=== PATIENT | male | born 1950 | race Caucasian/White ===

== ENCOUNTER → 2016-10-17 | Day surgery (SDC) | payer BC, MEDICARE ==
[~2016-10-17] VITALS: Ht 182.9 cm; Wt 90.7 kg
[~2016-10-17] MED LIST: ACCUPRIL40 MG PO; ASPIRIN EC81 MG PO; CLEOCIN HCL300 MG PO; LEVAQUIN 750 M750 MG PO; NEURONTIN300 MG PO; PERCOCET 5-3251 EACH PO; THERA-VITE W/ B1 TAB PO; TYLENOL WITH C1 EACH PO
--- NOTE | ~2016-10-17 | OR ---
PATIENT'S NAME: SANTI POTTER [facility] AGE: 66 Y [address] ROOM: [place] [address] LOCATION: [facility] [place] ADMIT DATE: 10/17/2016 OR/Procedure Report DISCHARGE DATE: FAMILY PHYSICIAN: Sasha Mcmullen APRN ATTENDING PHYSICIAN: Thony Puckett SURGEON: Thony Puckett DO HEAD WAITER: Staff. DATE OF PROCEDURE: 10/17/2016 PREOPERATIVE DIAGNOSIS: Necrotic left small fingertip. POSTOPERATIVE DIAGNOSIS: Necrotic left small fingertip. PROCEDURE: Left small finger amputation through the distal interphalangeal joint. ANESTHESIA: IV regional with sedation. ESTIMATED BLOOD LOSS: Less than 10 mL. TOURNIQUET TIME: Less than 1 hour at 250 mmHg. COMPLICATION: None. DISPOSITION: Stable to recovery room. JUSTIFICATION FOR PROCEDURE: Santi Potter is a 66-year-old male with a history of a crush injury to the tip of his left small finger. 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 He was counseled as to treatment options, risks versus benefits, and necessary afterward care. He gave informed consent to proceed with an amputation to the small finger and any indicated procedures. He was offered limb salvage attempts with skin grafting to the injured digit tip, but he declined this indicating he wanted to quick his route to recovery and minimal other wounds to try to heal. PROCEDURE IN DETAIL: The patient was properly identified, both verbally and by name tag. He was taken to the operating suite and placed on operating table in the supine position. The anesthesiologist administered an IV regional anesthetic on the left upper extremity and IV sedation. Once adequate anesthesia was obtained, left upper extremity was prepped and draped in usual sterile fashion. The extremity was exsanguinated with an Esmarch bandage and tourniquet inflated to level of the arm to 250 mmHg. A #15 blade knife was used to make a fishmouth incision centered around the PATIENT'S NAME: SANTI POTTER [facility] AGE: 66 Y [address] ROOM: [place] [address] LOCATION: [facility] [place] ADMIT DATE: 10/17/2016 OR/Procedure Report DISCHARGE DATE: FAMILY PHYSICIAN: Sasha Mcmullen APRN ATTENDING PHYSICIAN: Thony Puckett distal interphalangeal joint. Care was taken to preserve as much viable soft tissues as possible while resecting the entire distal phalanx bone and necrotic soft tissues near the tip and the nail bed. Full thickness dissection was carried out sharply. The digit was disarticulated through the distal interphalangeal joint. The necrotic finger tip tissues were sent to pathology for identification. The remaining soft tissues were inspected. The dorsal and volar neurovascular bundles were identified and neurectomies were performed trimming the nerve tissue back well proximal to the level of the amputation to avoid painful neuroma formation at the tip. The wound was copiously irrigated with saline. There was no necrotic tissue present. There was no evidence of infection or purulence noted. The cartilage was removed with a rongeur off of the head of the middle phalanx and the soft tissues were then contoured to create a cosmetically acceptable flap closure. The wound was copiously irrigated once again. The soft tissue sleeve was then closed with 5-0 nylon suture in interrupted mattress stitch fashion. A sterile bulky bundle dressing was applied. The tourniquet was let down prior to skin closure to ensure good hemostasis and to ensure good viability at the incision site. After the wound was closed and incision margins were visualized and there was no blanching of the skin to suggest undue pressure from the repair. There is good capillary refill to the tip. A sterile bulky bundle dressing was applied. The patient was aroused from IV sedation and taken to the recovery room in good condition. Immediate postoperative examination in the recovery room showed good capillary refill distally in the visible digits. The operative digit bandages showed no bleed through. Light touch sensation, motor function distally were equivocal due to persistence of the neurologic blockade. THONY PUCKETT DO NTM/modl /[id number] d: 10/19/16 0026 t: 10/24/16 2203, OPERATIVE SUMMARY
== END | disposition disaster alternative care site (69) ==
LOC: GPOC 10-16 13:00 → GSDC 09:03
PROC: 0X6W0Z3 Detachment at Left Little Finger, Low, Open Approach (ICD-10-PCS; principal; 2016-10-17)
DX: M87.245 Osteonecrosis due to previous trauma, left finger(s) (principal); F17.210 Nicotine dependence, cigarettes, uncomplicated; M19.90 Unspecified osteoarthritis, unspecified site; I10 Essential (primary) hypertension; I25.10 Atherosclerotic heart disease of native coronary artery without angina pectoris; Z85.51 Personal history of malignant neoplasm of bladder; Z90.49 Acquired absence of other specified parts of digestive tract; Z88.0 Allergy status to penicillin; Z79.899 Other long term (current) drug therapy; Z79.82 Long term (current) use of aspirin
CPT/HCPCS: J2001; J7120

== ENCOUNTER → 2017-01-04 | Day surgery (SDC) | payer BC, MEDICARE ==
[~2017-01-04] VITALS: Ht 182.9 cm; Wt 85.2 kg
--- NOTE | ~2017-01-04 | OR ---
PATIENT'S NAME: SANTI KNIGHT [facility] AGE: 66 Y [address] ROOM: [place] [address] LOCATION: [facility] [place] ADMIT DATE: 01/04/2017 OR/Procedure Report DISCHARGE DATE: FAMILY PHYSICIAN: Sasha Mcmullen APRN ATTENDING PHYSICIAN: Kina Blackburn SURGEON: Kina Blackburn MD CHAIR PAD MAKER: DATE OF PROCEDURE: 01/04/2017 PREOPERATIVE DIAGNOSIS: Transitional cell carcinoma of the bladder. POSTOPERATIVE DIAGNOSIS: Transitional cell carcinoma of the bladder. PROCEDURE PERFORMED: TURBT. ANESTHESIA: General. COMPLICATIONS: None. INDICATION FOR PROCEDURE: The patient is a 66-year-old male who was noted to have small superficial-appearing tumors lateral to the right ureteral orifice. These were noted on followup cystoscopy. The patient is status post TURBT in June of this year. DETAILS OF PROCEDURE: After informed consent obtained, the patient was taken to the operating room. A general anesthetic was applied and he was placed in the dorsal lithotomy position. The groin area was prepped and draped in normal sterile fashion. Cystoscope was introduced into the urethra and bladder without difficulty. Two primary lesions again were noted lateral to the ureteral orifice. Smaller satellite lesions were noted on the patient's left anterior wall. Next, biopsy forceps were introduced and the 2 lesions on the patient's right side were removed with cold cup biopsies. Following that, the resectoscope sheath was introduced followed by the resectoscope. The biopsy sites were then fulgurated for hemostasis. The lesions on the patient's left anterior wall were then resected and fulgurated. The specimens were sent to Pathology for analysis. The bladder was empty and the procedure terminated. The patient tolerated the procedure well and transferred to recovery room in good condition. MD YANET PARRA/farshadl PATIENT'S NAME: SANTI KNIGHT [facility] AGE: 66 Y [address] ROOM: [place] [address] LOCATION: [facility] [place] ADMIT DATE: 01/04/2017 OR/Procedure Report DISCHARGE DATE: FAMILY PHYSICIAN: Sasha Mcmullen APRN ATTENDING PHYSICIAN: Kina Blackburn /[id number] CC: Sasha Mcmullen APRN d: 01/05/17 2345 t: 01/15/17 1646, OPERATIVE SUMMARY
[2017-01-04 11:01] LABS: BASOPHIL # 0.1 K/uL (0.0-0.2); BASOPHIL % 0.6 %; EOSINOPHIL # 0.2 K/uL (0.0-0.5); EOSINOPHIL % 1.9 %; HEMATOCRIT 49.5 % (37.0-53.0); HEMOGLOBIN 16.9 g/dL (11.0-16.0); IMMATURE GRANULOCYTE # 0.1 K/uL (0.0-0.3); IMMATURE GRANULOCYTE % 1.6 %; LYMPHOCYTE # 2.2 K/uL (0.8-4.0); MCH 33.6 pg (27.0-34.0); MCHC 34.1 gm/dL (32.0-36.5); MCV 98.4 fl (83.0-98.0); MONOCYTE # 0.9 K/uL (0.0-1.0); MONOCYTE % 9.6 %; MPV 9.7 fl (9.4-12.4); NEUTROPHIL # (ANC) 5.5 K/uL (1.4-9.0); NEUTROPHIL % 61.3 %; NRBC % 0 /100WBC (0-0.00); PLATELET COUNT 159 K/uL (150-450); RBC 5.03 M/uL (3.50-5.50); RDW-CV 13.3 % (11.9-14.6); WBC 8.9 K/uL (4.0-11.0)
[2017-01-04 11:23] LABS: ALBUMIN 3.5 gm/dL (3.5-5.0); ALK PHOS 99 IU/L (33-138); ALT 21 IU/L (12-78); BLOOD UREA NITROGEN 12 mg/dL (6-24); CALCIUM 8.9 mg/dL (8.5-10.5); CHLORIDE 110 mMol/L (96-110); CO2 25 mMol/L (22-32); CREATININE 0.7 mg/dL (0.6-1.3); SODIUM 141 mMol/L (135-145); TOTAL BILIRUBIN 0.7 mg/dL (0.0-1.5)
[2017-01-04 11:30] LABS: ANION GAP 10.4 (10.0-19.0); AST 23 IU/L (10-40); POTASSIUM 4.4 mMol/L (3.7-5.1)
== END | disposition disaster alternative care site (69) ==
LOC: GPOC 01-01 10:00 → GSDC 10:00
PROVIDERS: Urology
PROC: 0TBB8ZX Excision of Bladder, Via Natural or Artificial Opening Endoscopic, Diagnostic (ICD-10-PCS; principal; 2017-01-04)
DX: C67.3 Malignant neoplasm of anterior wall of bladder (principal); I10 Essential (primary) hypertension; I25.10 Atherosclerotic heart disease of native coronary artery without angina pectoris; Z88.0 Allergy status to penicillin; Z79.899 Other long term (current) drug therapy; Z98.890 Other specified postprocedural states
CPT/HCPCS: J1956; J2001; J7030